=== PATIENT | male | born 2000 | race Caucasian/White ===

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

== ENCOUNTER → 2024-10-10 | Outpatient (CLI) | payer OTHER ==
[~2024-10-10] MED LIST: LIDO1PAD TOP
== END ==
LOC: M RAD 17:27
PROVIDERS: ATTEND Physician Assistant
DX: M25.512 Pain in left shoulder (principal); M79.18 Myalgia, other site

== ENCOUNTER 2024-10-14 17:02 | Emergency (ER) | payer OTHER ==
[~2024-10-14] VITALS: Ht 177.8 cm; Wt 86.3 kg
[2024-10-14 21:13] VITALS: BP 136/81; TEMP 98.2; O2SAT 99
== END 2024-10-14 21:12 | disposition home or self-care (01) ==
LOC: M ED 17:02
DX: S46.012A Strain of muscle(s) and tendon(s) of the rotator cuff of left shoulder, initial encounter (principal); Y92.9 Unspecified place or not applicable; Y93.9 Activity, unspecified; Y99.0 Civilian activity done for income or pay; Z79.899 Other long term (current) drug therapy

== ENCOUNTER → 2025-01-16 | Outpatient (REF) | payer OTHER ==
[2025-01-16 18:28] LABS: VITAMIN B12 LEVEL 637.0 PG/ML (211-911)
== END ==
LOC: M SFHCLERA 09:13
PROVIDERS: ATTEND Internal Medicine
DX: Z79.899 Other long term (current) drug therapy (principal); R53.83 Other fatigue